=== PATIENT | male | born 1945 | race Caucasian/White ===

== ENCOUNTER → 2016-06-29 | Outpatient (CLI) | payer MEDICARE, OTHER ==
[~2016-06-29] MED LIST: ABILIFY10 MG PO; ABILIFY30 MG PO; AUGMENTIN 500 M1 TAB PO; BROVANA15 MCG/2 M INH; BYDUREON P2 MG/0.65 SUBCUT; DUONEB 3.0-0.5 M3 ML INH; GLUCOPHAGE1000 MG PO; HALFPRIN81 MG PO; HUMALOG100 UNIT/1 PO; LANTUS100 UNIT/1 SUBCUT; LEVAQUIN750 MG PO; LIPITOR40 MG PO; MINIPRESS2 MG PO; MIRAPEX1 MG PO; MORPHINE SULFAT15 MG PO; MUCINEX600 MG PO; NEURONTIN300 MG PO; NITROSTAT0.4 MG SL; NYSTOP15 GM TOP; PAMELOR25 MG PO; PANTOPRAZOLE SO20 MG PO; PERIDEX15 ML SSPIT; PRAVACHOL20 MG PO; PREDNISONE10 MG PO; PREDNISONE20 MG PO; PRINIVIL10 MG PO; PROTONIX40 MG PO; PROVENTIL HFA6.7 GM INH; PROVENTIL HFA6.7 GM PO; SINEMET CR 25-11 TAB PO; SINEMET CR 50-21 TAB PO; SYMBICORT 160-4.6 GM INH; TRAZODONE HCL300 MG PO; VALIUM10 MG PO; VICTOZA 2-0.6 MG/0.1 INJECT; VICTOZA 2-0.6 MG/0.1 SUBCUT; VITAMIN B-12100 MCG PO; VITAMIN C1000 MG PO; ZITHROMAX250 MG PO
== END | disposition short-term general hospital (02) ==
LOC: CLPULM 10:03
DX: J44.9 Chronic obstructive pulmonary disease, unspecified (principal); E66.9 Obesity, unspecified; G47.33 Obstructive sleep apnea (adult) (pediatric); R91.8 Other nonspecific abnormal finding of lung field; E11.9 Type 2 diabetes mellitus without complications; G20 Parkinson's disease; F43.10 Post-traumatic stress disorder, unspecified

== ENCOUNTER → 2016-07-21 | Outpatient (CLI) | payer MEDICARE, OTHER | END | disposition short-term general hospital (02) | LOC: CLNEUR 11:57 | DX: G20 Parkinson's disease (principal); G62.9 Polyneuropathy, unspecified ==

== ENCOUNTER → 2016-10-19 | Outpatient (CLI) | payer MEDICARE, OTHER | END | disposition short-term general hospital (02) | LOC: CLPULM 11:42 | DX: J44.9 Chronic obstructive pulmonary disease, unspecified (principal); G47.33 Obstructive sleep apnea (adult) (pediatric); E66.9 Obesity, unspecified; F17.210 Nicotine dependence, cigarettes, uncomplicated; E11.9 Type 2 diabetes mellitus without complications; G20 Parkinson's disease; F43.10 Post-traumatic stress disorder, unspecified; Z77.090 Contact with and (suspected) exposure to asbestos; Z87.898 Personal history of other specified conditions ==

== ENCOUNTER → 2017-01-11 | Outpatient (CLI) | payer MEDICARE, OTHER | END | disposition short-term general hospital (02) | LOC: CLUROL 11:29 | DX: N17.9 Acute kidney failure, unspecified (principal); R33.9 Retention of urine, unspecified; J44.1 Chronic obstructive pulmonary disease with (acute) exacerbation ==